=== PATIENT | female | born 1940 ===

== ENCOUNTER 2020-12-26 16:55 | Observation (INO) | payer MEDICARE ==
--- NOTE | 2020-12-26 17:35 | EDM.PDOC ---
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 Has been on medication such as senna which did help but that medication was recently changed and now she has been having difficulty with bowel movements has not had a bowel movement for 2 days. Does have a history of ileus as well Abdomen Pain Score (Numeric/FACES): 8 - Related Data Allergies Allergy/AdvReac Type Severity Reaction Status Date / Time Sulfa (Sulfonamide Allergy Cannot Verified 12/26/20 17:29 Antibiotics) Remember Home Meds: Home Meds Acetaminophen 975 mg PO TID 12/26/20 [History] Cyanocobalamin (Vitamin B-12) [B-12] 1,000 mcg PO DAILY 12/26/20 [History] Escitalopram Oxalate [Lexapro] 10 mg PO DAILY 12/26/20 [History] FLUoxetine HCl [Fluoxetine HCl] 20 mg PO DAILY 12/26/20 [History] LORazepam [Ativan] 0.5 mg PO TID PRN 12/26/20 [History] Loperamide [Imodium] 2 mg PO DAILY 12/26/20 [History] Meclizine [Antivert] 25 mg PO Q6H PRN 12/26/20 [History] Miconazole Nitrate [Anti-Fungal Powder] 71 gm TP BID 12/26/20 [History] Multivitamin with Minerals [Multiple Vitamin] 1 tab PO DAILY 12/26/20 [History] Sennosides/Docusate Sodium [Senna Plus 8.6-50 mg Tablet] 2 each PO Q8H PRN 12/26/20 [History] Tolterodine Tartrate [Tolterodine Tartrate ER] 4 mg PO DAILY 12/26/20 [History] Vitamin B6-pyridOXINE [Vitamin B6] 100 mg .XX DAILY 12/26/20 [History] amLODIPine Besylate [Amlodipine Besylate] 5 mg PO DAILY 12/26/20 [History] metFORMIN HCl [Metformin HCl] 500 mg PO DAILY 12/26/20 [History] Past Medical History Cardiovascular History: Reports: Hypertension Genitourinary History: Reports: Other (See Below) Other Genitourinary History: overactive bladder Musculoskeletal History: Reports: Fibromyalgia Psychiatric History: Reports: Depression Endocrine/Metabolic History: Reports: Diabetes, Type II, Hypothyroidism Oncologic (Cancer) History: Reports: Colon, Thyroid, Other (See Below) Other Oncologic History: Rectal - Infectious Disease History Infectious Disease History: Reports: Chicken Pox, Measles, Mumps - Past Surgical History GI Surgical History: Reports: Other (See Below) Other GI Surgeries/Procedures: recent surgery for colon, rectal, and anal cancer Endocrine Surgical History: Reports: Thyroidectomy Social & Family History - Tobacco Use Tobacco Use Status *Q: Never Tobacco User - Caffeine Use Caffeine Use: Reports: Coffee - Recreational Drug Use Recreational Drug Use: No ED ROS GENERAL - Review of Systems Review Of Systems: See Below Constitutional: Reports: No Symptoms Respiratory: Reports: No Symptoms Cardiovascular: Reports: No Symptoms GI/Abdominal: Reports: Abdominal Pain, Constipation, Flatus, Nausea ED EXAM, GI/ABD - Physical Exam Exam: See Below Exam Limited By: No Limitations General Appearance: Alert (Continue self), WD/WN, No Apparent Distress Respiratory/Chest: No Respiratory Distress GI/Abdominal Exam: Normal Bowel Sounds, Soft, No Distention, Tender (Generalized tenderness), Other (Difficult to assess secondary to abdominal girth) Course - Vital Signs Last Recorded V/S: Last Vital Signs Temp 97.5 F 12/26/20 17:24 Pulse 101 H 12/26/20 17:24 Resp 16 12/26/20 17:24 BP 116/63 12/26/20 17:24 Pulse Ox 92 L 12/26/20 17:24 - Orders/Labs/Meds Orders: Active Orders 24 hr Category Date Time Status Abdomen 1V Upright [CR] Stat Exams 12/26/20 17:31 Taken Departure - Departure Time of Disposition: 18:13 Disposition: Admitted As Inpatient 68 Condition: Fair Clinical Impression: Functional constipation - Discharge Information Referrals: PCP,None [Primary Care Provider] - Forms: ED Department Discharge Sepsis Event Note (ED) - Evaluation Sepsis Screening Result: No Definite Risk - Focused Exam Vital Signs: Vital Signs Temp Pulse Resp BP Pulse Ox 12/26/20 17:24 97.5 F 101 H 16 116/63 92 L 03/30/21 17:21 97.5 F 101 H 16 116/63 92 L - My Orders Last 24 Hours: My Active Orders 12/26/20 17:31 Abdomen 1V Upright [CR] Stat - Assessment/Plan Last 24 Hours: My Active Orders 12/26/20 17:31 Abdomen 1V Upright [CR] Stat Plan: Assessment Acuity = acute Site and laterality = functional constipation Etiology = slow transit time Manifestations = none Location of injury = Home Lab values = plain film does show moderate amount of stool sigmoid colon Plan Because she has orders from her surgeon nothing per rectum very limited on options, she is a resident of an assisted living assisted feels she cannot care for herself at home if she takes colonoscopy prep. Therefore called emerald sorto case hospitalist [id number] currently agreed to come evaluate patient emergency department for admission This note was dictated using [employer] voice recognition software please call with any questions on syntax or grammar.
[2020-12-26] MEDS ORDERED: Polyethylene Glycol 3350 Powder 17 GM Packet PO ONE (18:53)
[2020-12-26] MEDS ORDERED: Bisacodyl 5 MG Tab PO ONE (18:53)
--- NOTE | 2020-12-26 18:55 | PCM.HP.2 ---
H&P History of Present Illness - General Date of Service: 12/26/20 Admit Problem/Dx: Admission Diagnosis/Problem Admission Diagnosis/Problem Constipation Source of Information: Patient, Provider, RN Notes Reviewed History Limitations: Reports: No Limitations - History of Present Illness Initial Comments - Free Text/Narative: Ms. Jsesica is a 80-year-old woman who was admitted through the emergency department abdominal pain secondary to constipation. Status post colorectal surgery for precancerous lesion done almost 3 months ago. Over the last 3 days has only had 1 small bowel movement and has felt progressive increase in abdominal pain. Yesterday she did drink 7 bottles of prune juice and also took 1 bottle of magnesium citrate without improvement in her constipation. Her surgeon has told her because of the extensive surgery that she should not have anything per rectum. Abdominal x-ray was performed in the emergency department and shows significant stool within the colon. Abdomen Pain Score (Numeric/FACES): 8 - Related Data Allergies/Adverse Reactions: Allergies Allergy/AdvReac Type Severity Reaction Status Date / Time Sulfa (Sulfonamide Allergy Cannot Verified 12/26/20 17:29 Antibiotics) Remember Home Medications: Home Meds Acetaminophen 975 mg PO TID 12/26/20 [History] Cyanocobalamin (Vitamin B-12) [B-12] 1,000 mcg PO DAILY 12/26/20 [History] Escitalopram Oxalate [Lexapro] 10 mg PO DAILY 12/26/20 [History] FLUoxetine HCl [Fluoxetine HCl] 20 mg PO DAILY 12/26/20 [History] LORazepam [Ativan] 0.5 mg PO TID PRN 12/26/20 [History] Loperamide [Imodium] 2 mg PO DAILY 12/26/20 [History] Meclizine [Antivert] 25 mg PO Q6H PRN 12/26/20 [History] Miconazole Nitrate [Anti-Fungal Powder] 71 gm TP BID 12/26/20 [History] Multivitamin with Minerals [Multiple Vitamin] 1 tab PO DAILY 12/26/20 [History] Sennosides/Docusate Sodium [Senna Plus 8.6-50 mg Tablet] 2 each PO Q8H PRN 12/26/20 [History] Tolterodine Tartrate [Tolterodine Tartrate ER] 4 mg PO DAILY 12/26/20 [History] Vitamin B6-pyridOXINE [Vitamin B6] 100 mg .XX DAILY 12/26/20 [History] amLODIPine Besylate [Amlodipine Besylate] 5 mg PO DAILY 12/26/20 [History] metFORMIN HCl [Metformin HCl] 500 mg PO DAILY 12/26/20 [History] Past Medical History Cardiovascular History: Reports: Hypertension Genitourinary History: Reports: Other (See Below) Other Genitourinary History: overactive bladder Musculoskeletal History: Reports: Fibromyalgia Psychiatric History: Reports: Depression Endocrine/Metabolic History: Reports: Diabetes, Type II, Hypothyroidism Oncologic (Cancer) History: Reports: Colon, Thyroid, Other (See Below) Other Oncologic History: Rectal - Infectious Disease History Infectious Disease History: Reports: Chicken Pox, Measles, Mumps - Past Surgical History GI Surgical History: Reports: Other (See Below) Other GI Surgeries/Procedures: recent surgery for colon, rectal, and anal cancer Endocrine Surgical History: Reports: Thyroidectomy Social & Family History - Tobacco Use Tobacco Use Status *Q: Never Tobacco User - Caffeine Use Caffeine Use: Reports: Coffee - Recreational Drug Use Recreational Drug Use: No H&P Review of Systems - Review of Systems: Review Of Systems: See Below General: Reports: No Symptoms HEENT: Reports: No Symptoms Pulmonary: Reports: No Symptoms Cardiovascular: Reports: No Symptoms Gastrointestinal: Reports: Abdominal Pain, Constipation, Distension, Nausea. Denies: Diarrhea, Difficulty Swallowing, Hematemesis, Hematochezia, Melena, Vomiting Genitourinary: Reports: No Symptoms Musculoskeletal: Reports: No Symptoms Skin: Reports: No Symptoms Psychiatric: Reports: No Symptoms Neurological: Reports: No Symptoms Hematologic/Lymphatic: Reports: No Symptoms Immunologic: Reports: No Symptoms Exam - Exam Exam: See Below - Vital Signs Vital Signs: Last Vital Signs Temp 97.5 F 12/26/20 17:24 Pulse 83 12/26/20 18:23 Resp 16 12/26/20 17:24 BP 127/73 12/26/20 18:23 Pulse Ox 92 L 12/26/20 18:23 Weight: 194 lb - Exam Quality Assessment: DVT Prophylaxis General: Alert, Oriented, Cooperative, Moderate Distress HEENT: Conjunctiva Clear, Hearing Intact, Mucosa Moist & [place], Normal Nasal Septum, Posterior Pharynx Clear, Pupils Equal Neck: Supple, Trachea Midline, +2 Carotid Pulse wo Bruit Lungs: Clear to Auscultation, Normal Respiratory Effort Cardiovascular: Regular Rate, Regular Rhythm, Normal S1, Normal S2. No: Systolic Murmur, Diastolic Murmur GI/Abdominal Exam: Soft, No Organomegaly, Distended, Tender. No: Guarding, Rigid, Rebound Back Exam: Normal Inspection, Full Range of Motion Skin: Warm, Dry, Intact Neurological: Cranial Nerves Intact, Strength Equal Bilateral, Normal Speech, Normal Tone, Sensation Intact. No: Focal Deficit Neuro Extensive - Mental Status: Alert, Oriented x3, Normal Mood/Affect, Normal Cognition, Memory Intact Sepsis Event Note - Evaluation Sepsis Screening Result: No Definite Risk - Focused Exam Vital Signs: Vital Signs Temp Pulse Resp BP Pulse Ox 12/26/20 18:23 83 127/73 92 L 12/26/20 17:24 97.5 F 101 H 16 116/63 92 L 12/26/20 17:21 97.5 F 101 H 16 116/63 92 L *Q Meaningful Use (ADM) - VTE Risk Assess *Q Each Risk Factor Represents 1 Point: Obesity ( BMI > 25 kg/m2) Total Score 1 Point Risk Factors: 1 Each Risk Factor Represents 2 Points: None Total Score 2 Point Risk Factors: 0 Each Risk Factor Represents 3 Points: Age 75 Years or Greater Total Score 3 Point Risk Factors: 3 Each Risk Factor Represents 5 Points: None Total Score 5 Point Risk Factors: 0 Venous Thromboembolism Risk Factor Score *Q: 4 Problem List Initiated/Reviewed/Updated: Yes Orders Last 24hrs: Active Orders 24 hr Category Date Time Status Patient Status Manage Transfer [TRANSFER] Routine ADT 12/26/20 18:47 Active Abdomen 1V Upright [CR] Stat Exams 12/26/20 17:31 Taken bisacodyL [Dulcolax] Med 12/26/20 18:53 Once 10 mg PO ONETIME ONE polyethylene glycoL 3350 [MiraLAX] Med 12/26/20 18:53 Once 68 gm PO ONETIME ONE Resuscitation Status Routine Resus Stat 12/26/20 18:50 Ordered Assessment/Plan Comment:: ASSESSMENT AND PLAN CONSTIPATION-associated with abdominal pain, unable to take anything per rectum because of recent surgery. -Dulcolax 10 mg p.o. now -MiraLAX 68 mg p.o. now HYPERTENSION -Continue outpatient medications MAINTENANCE ISSUES -DVT prophylaxis; Lovenox 40 mg subcu daily -GI prophylaxis; not indicated -Cross catheter; not indicated -Nutrition; regular diet -Nicotine dependence; not required CODE STATUS-FULL CODE ADMISSION STATUS-this patient will be admitted to observation status, expect no more than a one night hospital stay for evaluation and management of problems as outlined above. DISPOSITION-anticipate discharge to home after the hospital stay. - Mortality Measure Prognosis:: Good
[2020-12-26] MEDS ORDERED: Acetaminophen 325 MG Tab PO PRN (20:15)
[2020-12-26] MEDS ORDERED: Ondansetron 4 MG/2 ML SDV IV PRN (20:15)
[2020-12-26] MEDS ORDERED: 50% Dextrose in Water 50 ML Syringe IV PRN (20:15)
[2020-12-26] MEDS ORDERED: Sodium Chloride 0.9% 10 ML Syringe FLUSH PRN (20:15)
[2020-12-26] MEDS ORDERED: Glucose Gel 15 GM in 37.5 GM Tube PO PRN (20:15)
[2020-12-27] MEDS: LORazepam 0.5 MG Tab PO PRN (08:42)
[2020-12-27] MEDS ORDERED: Tolterodine 2 MG Tab PO SCH (09:00)
--- NOTE | 2020-12-27 09:04 | CR ---
Abdomen 1V Upright CLINICAL HISTORY: Abdominal pain FINDINGS: No free air is identified. There are scattered air-fluid levels throughout the abdomen without significant distention. There is moderate amount of stool in the rectosigmoid colon. IMPRESSION: Scattered air-fluid levels in a nonspecific pattern Moderate fecal retention in the rectosigmoid colon
[2020-12-27] MEDS: Tolterodine 2 MG Tab PO SCH ×2 (10:31→21:08)
[2020-12-27] MEDS: Escitalopram 10 MG Tab PO SCH (10:31)
[2020-12-27] MEDS: metFORMIN 500 MG Tab PO SCH (10:31)
[2020-12-27] MEDS: FLUoxetine 20 MG Cap PO SCH (10:31)
[2020-12-27] MEDS: Enoxaparin 40 MG/0.4 ML Syringe SUBCUT SCH (10:33)
[2020-12-27] MEDS: amLODIPine 5 MG Tab PO SCH (10:33)
[2020-12-27] MEDS ORDERED: Bisacodyl 10 MG Supp RECTAL ONE (12:45)
[2020-12-27] MEDS ORDERED: Sodium Phosphate,Monobasic/Sodium Phosphate,Dibasic Enema 133 ML Bottle RECTAL ONE ×2 (13:30→15:32)
--- NOTE | 2020-12-27 16:03 | PCM.PN ---
- General Info Date of Service: 12/27/20 Subjective Update: Ms. Jessica continues to experience symptoms of cramping abdominal pain and has not yet had significant bowel movement. All signs have been stable and she is otherwise remained afebrile. - Review of Systems General: Reports: No Symptoms Pulmonary: Reports: No Symptoms Cardiovascular: Reports: No Symptoms Gastrointestinal: Reports: Abdominal Pain, Constipation. Denies: Diarrhea, Difficulty Swallowing, Hematochezia, Melena, Nausea, Vomiting - Patient Data Vitals - Most Recent: Last Vital Signs Temp 97.8 F 12/27/20 10:36 Pulse 77 12/27/20 10:36 Resp 16 12/27/20 10:36 BP 112/46 L 12/27/20 10:36 Pulse Ox 95 12/27/20 10:36 Weight - Most Recent: 197 lb 3.185 oz I&O - Last 24 Hours: Intake & Output 12/27/20 12/27/20 12/27/20 06:59 14:59 22:59 Output Total 400 Balance -400 Lab Results Last 24 Hours: Laboratory Results - last 24 hr 12/26/20 12/26/20 Range/Units 21:55 21:55 Plt Count 299 (150-400) K/uL Creatinine 1.0 (0.6-1.0) mg/dL Est Cr Clr Drug Dosing 36.67 mL/min Estimated GFR (MDRD) 54 L (>60) Med Orders - Current: Current Medications Acetaminophen (Acetaminophen 325 Mg Tab) 650 mg PO Q4H PRN PRN Reason: Pain (Mild 1-3)/fever Last Admin: 12/27/20 08:42 Dose: 650 mg Documented by: Amlodipine Besylate (Amlodipine 5 Mg Tab) 5 mg PO DAILY [facility] Last Admin: 12/27/20 10:33 Dose: 5 mg Documented by: Dextrose (Glucose Gel 15 Gm In 37.5 Gm Tube) 15 gm PO ONETIME PRN PRN Reason: Hypoglycemia Dextrose/Water (50% Dextrose In Water 50 Ml Syringe) 50 ml IV ONETIME PRN PRN Reason: Hypoglycemia Enoxaparin Sodium (Enoxaparin 40 Mg/0.4 Ml Syringe) 40 mg SUBCUT DAILY [facility] Last Admin: 12/27/20 10:33 Dose: 40 mg Documented by: Escitalopram Oxalate (Escitalopram 10 Mg Tab) 10 mg PO DAILY [facility] Last Admin: 12/27/20 10:31 Dose: 10 mg Documented by: Fluoxetine HCl (Fluoxetine 20 Mg Cap) 20 mg PO DAILY [facility] Last Admin: 12/27/20 10:31 Dose: 20 mg Documented by: Lorazepam (Lorazepam 0.5 Mg Tab) 0.5 mg PO TID PRN PRN Reason: Dizziness Last Admin: 12/27/20 08:42 Dose: 0.5 mg Documented by: Metformin HCl (Metformin 500 Mg Tab) 500 mg PO DAILY@0800 [facility] Last Admin: 12/27/20 10:31 Dose: 500 mg Documented by: Ondansetron HCl (Ondansetron 4 Mg/2 Ml Sdv) 4 mg IV Q4H PRN PRN Reason: Nausea/Vomiting Sodium Chloride (Sodium Chloride 0.9% 10 Ml Syringe) 10 ml FLUSH ASDIRECTED PRN PRN Reason: Keep Vein Open Tolterodine Tartrate (Tolterodine 2 Mg Tab) 2 mg PO BID [facility] Last Admin: 12/27/20 10:31 Dose: 2 mg Documented by: Discontinued Medications Bisacodyl (Bisacodyl 5 Mg Tab) 10 mg PO ONETIME ONE Stop: 12/26/20 18:54 Last Admin: 12/26/20 20:43 Dose: 10 mg Documented by: Bisacodyl (Bisacodyl 10 Mg Supp) 10 mg RECTAL ONETIME ONE Stop: 12/27/20 12:46 Last Admin: 12/27/20 13:22 Dose: 10 mg Documented by: Polyethylene Glycol (Polyethylene Glycol 3350 Powder 17 Gm Packet) 68 gm PO ONETIME ONE Stop: 12/26/20 18:54 Last Admin: 12/26/20 20:44 Dose: 68 gm Documented by: Sodium Biphosphate/Sodium Phosphate (Sodium Phosphate,Monobasic/Sodium Phosphate,Dibasic Enema 133 Ml Bottle) 133 ml RECTAL ONETIME ONE Stop: 12/27/20 13:31 Last Admin: 12/27/20 14:19 Dose: 1 enema Documented by: Sodium Biphosphate/Sodium Phosphate (Sodium Phosphate,Monobasic/Sodium Phosphate,Dibasic Enema 133 Ml Bottle) 133 ml RECTAL ONETIME ONE Stop: 12/27/20 15:33 Last Admin: 12/27/20 15:52 Dose: 1 applic Documented by: - Exam General: Alert, Oriented, Cooperative, Moderate Distress Lungs: Clear to Auscultation, Normal Respiratory Effort Cardiovascular: Regular Rate, Regular Rhythm, No Murmurs GI/Abdominal Exam: Soft, No Organomegaly, Tender. No: Distended, Guarding, Rigid, Rebound Extremities: Non-Tender, No Pedal Edema - Patient Data Lab Results Last 24 hrs: Laboratory Results - last 24 hr 12/26/20 12/26/20 Range/Units 21:55 21:55 Plt Count 299 (150-400) K/uL Creatinine 1.0 (0.6-1.0) mg/dL Est Cr Clr Drug Dosing 36.67 mL/min Estimated GFR (MDRD) 54 L (>60) Result Diagrams: 12/26/20 21:55 12/26/20 21:55 Sepsis Event Note - Evaluation Sepsis Screening Result: No Definite Risk - Focused Exam Vital Signs: Vital Signs Temp Pulse Resp BP BP Pulse Ox 12/27/20 10:36 97.8 F 77 16 112/46 L 95 12/27/20 10:33 112/46 L 12/27/20 07:44 97.8 F 78 16 118/51 L 97 12/27/20 04:21 97.2 F 90 16 133/66 94 L - Problem List Review Problem List Initiated/Reviewed/Updated: Yes - My Orders Last 24 Hours: My Active Orders 12/26/20 Dinner Consistent Carbohydrate Diet [DIET] 12/26/20 18:50 Resuscitation Status Routine 12/26/20 20:15 Acetaminophen [TylenoL] 650 mg PO Q4H PRN Dextrose 50% in Water 50 ml IV ONETIME PRN Dextrose [Glutose 15] 15 gm PO ONETIME PRN LORazepam [Ativan] 0.5 mg PO TID PRN Ondansetron [Zofran] 4 mg IV Q4H PRN Sodium Chloride 0.9% [Saline Flush] 10 ml FLUSH ASDIRECTED PRN 12/26/20 20:15 Patient Status [ADT] Routine Ambulate [RC] QID Diabetes Education [RC] Click to Edit Height and Weight [RC] DAILY Intake and Output [RC] QSHIFT Notify Provider Vital Signs [RC] ASDIRECTED Notify Provider [RC] PRN Oxygen Therapy [RC] .PRN Up With Assistance [RC] ASDIRECTED Up to Chair [RC] QID Vital Signs [RC] Q4H Saline Lock Insert [OM.PC] Routine 12/27/20 08:00 metFORMIN [Glucophage] 500 mg PO DAILY@0800 12/27/20 09:00 Enoxaparin [Lovenox] 40 mg SUBCUT DAILY Escitalopram [Lexapro] 10 mg PO DAILY FLUoxetine [PROzac] 20 mg PO DAILY Tolterodine [DetroL] 2 mg PO BID amLODIPine [Norvasc] 5 mg PO DAILY 12/27/20 10:26 Consult to Physical Therapy [PT Evaluation and Treatment] [CONS] Routine - Plan Plan:: ASSESSMENT AND PLAN CONSTIPATION-associated with abdominal pain, she has not yet had a bowel movement. Her surgeon has been contacted and agrees to use of fleets enema and Dulcolax suppository. -Dulcolax suppository now -Fleet enema if no result from suppository HYPERTENSION -Continue outpatient medications MAINTENANCE ISSUES -DVT prophylaxis; Lovenox 40 mg subcu daily -GI prophylaxis; not indicated -Cross catheter; not indicated -Nutrition; regular diet -Nicotine dependence; not required CODE STATUS-FULL CODE ADMISSION STATUS-this patient will be admitted to observation status, expect no more than a one night hospital stay for evaluation and management of problems as outlined above. DISPOSITION-anticipate discharge to home after the hospital stay.
[2020-12-28] MEDS: LORazepam 0.5 MG Tab PO PRN (02:23)
[2020-12-28] MEDS: Tolterodine 2 MG Tab PO SCH (08:10)
[2020-12-28] MEDS: Enoxaparin 40 MG/0.4 ML Syringe SUBCUT SCH (08:10)
[2020-12-28] MEDS: metFORMIN 500 MG Tab PO SCH (08:11)
[2020-12-28] MEDS: amLODIPine 5 MG Tab PO SCH (08:11)
[2020-12-28] MEDS: FLUoxetine 20 MG Cap PO SCH (08:11)
[2020-12-28] MEDS: Escitalopram 10 MG Tab PO SCH (08:12)
--- NOTE | 2020-12-28 11:16 | PCM.DCSUM1 ---
Discharge Summary - Hospital Course Brief History: Ms. Jessica is a 80-year-old woman who was admitted to observation status, through the emergency department with weakness and cramping abdominal pain secondary to constipation. - Discharge Data Discharge Date: 12/28/20 Discharge Disposition: Home, Self-Care 01 Condition: Fair - Referral to Home Health Primary Care Physician: PCP None - Discharge Diagnosis/Problem(s) (1) History of rectal cancer SNOMED Code(s): 139840877 ICD Code: Z85.048 - PRSNL HX OF MALIG NEOPLM OF RECTUM, RECTOSIG JUNCT, AND ANUS Status: Chronic Current Visit: No (2) Type 2 diabetes mellitus SNOMED Code(s): 24713782 ICD Code: E11.9 - TYPE 2 DIABETES MELLITUS WITHOUT COMPLICATIONS Status: Chronic Current Visit: No (3) Functional constipation SNOMED Code(s): 757486789 ICD Code: K59.04 - CHRONIC IDIOPATHIC CONSTIPATION Status: Acute Current Visit: Yes - Patient Summary/Data Consults: Consultations 12/27/20 10:26 Consult to Physical Therapy [PT Evaluation and Treatment] [CONS] Routine Please Evaluate and Treat. PT Reason for Consult: Strengthening Pending Discharge: Yes This query below is only for informational purposes and is not editable. Admission Diagnosis/Problem: Constipation Hospital Course: Ms. Jessica is a 80-year-old woman who was admitted through the emergency department to observation status, with weakness and abdominal pain secondary to constipation. Status post colorectal surgery for precancerous lesion done almost 3 months ago. Over the last 3 days has only had 1 small bowel movement and has felt progressive increase in abdominal pain. Yesterday she did drink 7 bottles of prune juice and also took 1 bottle of magnesium citrate without improvement in her constipation. Her surgeon has told her because of the extensive surgery that she should not have anything per rectum. Abdominal x-ray was performed in the emergency department and shows significant stool within the colon. On admission she was given Dulcolax and MiraLAX, by the following morning really had had no good output of stool. Situation was reviewed with her surgery team and they did agree to suppositories and enemas. She was treated with Dulcolax suppositories and 2 fleets enemas and did experience a good bowel movement and felt much improved thereafter. She will be discharged back to the long term for further restorative physical therapy and Occupational Therapy. Activity will be as tolerated and she will resume her usual diet. - Patient Instructions Diet: Diabetic Diet Activity: As Tolerated - Discharge Plan *PRESCRIPTION DRUG MONITORING PROGRAM REVIEWED*: Not Applicable *COPY OF PRESCRIPTION DRUG MONITORING REPORT IN PATIENT CALVIN: Not Applicable Home Medications: Home Meds Acetaminophen 975 mg PO TID 12/26/20 [History] Cyanocobalamin (Vitamin B-12) [B-12] 1,000 mcg PO DAILY 12/26/20 [History] Escitalopram Oxalate [Lexapro] 10 mg PO DAILY 12/26/20 [History] FLUoxetine HCl [Fluoxetine HCl] 20 mg PO DAILY 12/26/20 [History] LORazepam [Ativan] 0.5 mg PO TID PRN 12/26/20 [History] Loperamide [Imodium] 2 mg PO DAILY 12/26/20 [History] Meclizine [Antivert] 25 mg PO Q6H PRN 12/26/20 [History] Miconazole Nitrate [Anti-Fungal Powder] 71 gm TP BID 12/26/20 [History] Multivitamin with Minerals [Multiple Vitamin] 1 tab PO DAILY 12/26/20 [History] Tolterodine Tartrate [Tolterodine Tartrate ER] 4 mg PO DAILY 12/26/20 [History] Vitamin B6-pyridOXINE [Vitamin B6] 100 mg .XX DAILY 12/26/20 [History] amLODIPine Besylate [Amlodipine Besylate] 5 mg PO DAILY 12/26/20 [History] metFORMIN HCl [Metformin HCl] 500 mg PO DAILY 12/26/20 [History] Sennosides/Docusate Sodium [Senna Plus 8.6-50 mg Tablet] 2 each PO BID PRN #120 12/28/20 [Rx] Referrals: PCP,None [Primary Care Provider] - - Discharge Summary/Plan Comment DC Time >30 min.: No - Patient Data Vitals - Most Recent: Last Vital Signs Temp 98 F 12/28/20 10:54 Pulse 84 12/28/20 10:54 Resp 16 12/28/20 10:54 BP 95/49 L 12/28/20 10:54 Pulse Ox 93 L 12/28/20 10:54 Weight - Most Recent: 193 lb 12.581 oz I&O - Last 24 hours: Intake & Output 12/27/20 12/28/20 12/28/20 22:59 06:59 14:59 Intake Total 400 120 Balance 400 120 Med Orders - Current: Current Medications Acetaminophen (Acetaminophen 325 Mg Tab) 650 mg PO Q4H PRN PRN Reason: Pain (Mild 1-3)/fever Last Admin: 12/27/20 08:42 Dose: 650 mg Documented by: Amlodipine Besylate (Amlodipine 5 Mg Tab) 5 mg PO DAILY [facility] Last Admin: 12/28/20 08:11 Dose: 5 mg Documented by: Dextrose (Glucose Gel 15 Gm In 37.5 Gm Tube) 15 gm PO ONETIME PRN PRN Reason: Hypoglycemia Dextrose/Water (50% Dextrose In Water 50 Ml Syringe) 50 ml IV ONETIME PRN PRN Reason: Hypoglycemia Enoxaparin Sodium (Enoxaparin 40 Mg/0.4 Ml Syringe) 40 mg SUBCUT DAILY [facility] Last Admin: 12/28/20 08:10 Dose: 40 mg Documented by: Escitalopram Oxalate (Escitalopram 10 Mg Tab) 10 mg PO DAILY [facility] Last Admin: 12/28/20 08:12 Dose: 10 mg Documented by: Fluoxetine HCl (Fluoxetine 20 Mg Cap) 20 mg PO DAILY [facility] Last Admin: 12/28/20 08:11 Dose: 20 mg Documented by: Lorazepam (Lorazepam 0.5 Mg Tab) 0.5 mg PO TID PRN PRN Reason: Dizziness Last Admin: 12/28/20 02:23 Dose: 0.5 mg Documented by: Metformin HCl (Metformin 500 Mg Tab) 500 mg PO DAILY@0800 [facility] Last Admin: 12/28/20 08:11 Dose: 500 mg Documented by: Ondansetron HCl (Ondansetron 4 Mg/2 Ml Sdv) 4 mg IV Q4H PRN PRN Reason: Nausea/Vomiting Sodium Chloride (Sodium Chloride 0.9% 10 Ml Syringe) 10 ml FLUSH ASDIRECTED PRN PRN Reason: Keep Vein Open Tolterodine Tartrate (Tolterodine 2 Mg Tab) 2 mg PO BID [facility] Last Admin: 12/28/20 08:10 Dose: 2 mg Documented by: Discontinued Medications Bisacodyl (Bisacodyl 5 Mg Tab) 10 mg PO ONETIME ONE Stop: 12/26/20 18:54 Last Admin: 12/26/20 20:43 Dose: 10 mg Documented by: Bisacodyl (Bisacodyl 10 Mg Supp) 10 mg RECTAL ONETIME ONE Stop: 12/27/20 12:46 Last Admin: 12/27/20 13:22 Dose: 10 mg Documented by: Polyethylene Glycol (Polyethylene Glycol 3350 Powder 17 Gm Packet) 68 gm PO ONETIME ONE Stop: 12/26/20 18:54 Last Admin: 12/26/20 20:44 Dose: 68 gm Documented by: Sodium Biphosphate/Sodium Phosphate (Sodium Phosphate,Monobasic/Sodium Phosphate,Dibasic Enema 133 Ml Bottle) 133 ml RECTAL ONETIME ONE Stop: 12/27/20 13:31 Last Admin: 12/27/20 14:19 Dose: 1 enema Documented by: Sodium Biphosphate/Sodium Phosphate (Sodium Phosphate,Monobasic/Sodium Phos phate,Dibasic Enema 133 Ml Bottle) 133 ml RECTAL ONETIME ONE Stop: 12/27/20 15:33 Last Admin: 12/27/20 15:52 Dose: 1 applic Documented by: - Exam Quality Assessment: Reports: DVT Prophylaxis General: Reports: Alert, Oriented, Cooperative, No Acute Distress Lungs: Reports: Clear to Auscultation, Normal Respiratory Effort Cardiovascular: Reports: Regular Rate, Regular Rhythm, No Murmurs GI/Abdominal Exam: Soft, Non-Tender, No Organomegaly, No Distention
== END 2020-12-28 14:30 ==
LOC: JP.ED 16:55 → JP.MS 18:47
PROVIDERS: ADMIT Hospitalist; ATTEND Hospitalist
DX: K59.04 Chronic idiopathic constipation (principal); I10 Essential (primary) hypertension; E11.9 Type 2 diabetes mellitus without complications; E03.9 Hypothyroidism, unspecified; Z88.2 Allergy status to sulfonamides; Z79.899 Other long term (current) drug therapy; Z79.84 Long term (current) use of oral hypoglycemic drugs; Z98.890 Other specified postprocedural states; Z85.048 Personal history of other malignant neoplasm of rectum, rectosigmoid junction, and anus
CPT/HCPCS: 36415; 74018; 74018-26; 82565; 85049; 96372; 97116-GP; 97161-GP; 99282; 99284; A9270-GY; G0378; J1650